=== PATIENT | male | born 1965 | race Caucasian/White ===

== ENCOUNTER 2024-08-14 17:49 | Emergency (ER) | payer OTHER ==
[~2024-08-14] VITALS: Ht 185.4 cm; Wt 73.2 kg
[2024-08-14] MEDS ORDERED: LORA-1041 (18:20)
[2024-08-14] MEDS ORDERED: OMEP-173 (18:20)
[2024-08-14 22:24] VITALS: TEMP 98.4
[2024-08-15] MEDS ORDERED: NAPR-1405 PO (00:16)
[2024-08-15 00:29] VITALS: BP 124/74; O2SAT 99
== END 2024-08-15 00:30 | disposition home or self-care (01) ==
LOC: M ED 17:49
DX: S66.802A Unspecified injury of other specified muscles, fascia and tendons at wrist and hand level, left hand, initial encounter (principal); X58.XXXA Exposure to other specified factors, initial encounter; Y92.9 Unspecified place or not applicable; Y93.89 Activity, other specified; Y99.0 Civilian activity done for income or pay; K21.9 Gastro-esophageal reflux disease without esophagitis